=== PATIENT | female | born 1960 | race Hispanic/Latino ===

== ENCOUNTER → 2017-03-23 | Outpatient (CLI) | payer OTHER ==
[~2017-03-23] MED LIST: ADVIL,NUPRIN,M200 MG PO; ALEVE220 MG PO; ASPIR-LOW81 MG PO; ERGOCALCIF50000 UNIT PO; MAGNESIUM200 MG PO; SIMVASTATIN20 MG PO; TYLENOL EXTRA500 MG PO; ZITHROMAX Z-PA250 MG PO; ZOFRAN4 MG PO
== END | disposition home or self-care (01) ==
LOC: CDC 10:58
DX: Z01.810 Encounter for preprocedural cardiovascular examination (principal); R94.31 Abnormal electrocardiogram [ECG] [EKG]
CPT/HCPCS: 93000

== ENCOUNTER 2017-03-27 07:35 | Day surgery (SDC) | payer OTHER ==
[~2017-03-27] VITALS: Ht 162.6 cm; Wt 102.1 kg
[2017-03-27 07:51] VITALS: BP 175/82
[2017-03-27 10:15] VITALS: BP 122/69
[2017-03-27 11:05] VITALS: BP 136/74
== END 2017-03-27 11:15 | disposition home or self-care (01) ==
LOC: SDC
PROC: 0UDB8ZX Extraction of Endometrium, Via Natural or Artificial Opening Endoscopic, Diagnostic (ICD-10-PCS; principal; 2017-03-27)
DX: N95.0 Postmenopausal bleeding (principal); R93.8 Abnormal findings on diagnostic imaging of other specified body structures; E78.00 Pure hypercholesterolemia, unspecified; E55.9 Vitamin D deficiency, unspecified; F17.210 Nicotine dependence, cigarettes, uncomplicated; Z88.0 Allergy status to penicillin
CPT/HCPCS: 88305; J0330; J1100; J2250; J2405; J2765; J3010; Q0175

== ENCOUNTER 2018-01-18 21:25 | Observation (INO) | payer OTHER ==
[~2018-01-18] VITALS: Ht 154.9 cm; Wt 106.4 kg
[2018-01-18 21:49] LABS: HEMATOCRIT 40.5 % (36.0-46.0); MCH 30.8 PG (29.0-34.0); MCHC 34.6 G/DL (30.0-36.0); PLATELET COUNT 161 K/uL (156-360); RBC DIS.WIDTH-CV 12.5 % (11.8-14.6); RBC DIS.WIDTH-SD 41.1 % (39-53); RED BLOOD COUNT 4.55 M/uL (3.80-5.20); WHITE BLOOD COUNT 8.6 K/uL (4.1-10.2)
[2018-01-18 22:12] LABS: CHLORIDE 108 mEq/L (99-109); POTASSIUM 4.2 mEq/L (3.7-5.4); SODIUM 143 mEq/L (136-147)
[2018-01-18 22:13] LABS: GLUCOSE 111 mg/dL (70-99)
[2018-01-18 22:17] LABS: CREATININE 0.8 mg/dL (0.6-1.3); GFR ESTIMATE (CALCULATED) > 59 mL/min/
[2018-01-18 22:18] LABS: UREA NITROGEN (BUN) 15 mg/dL (9-23)
[2018-01-18 22:22] LABS: TROP-I INTERPRETATION NEGATIVE; TROPONIN-I < 0.01 ng/mL (0.0-0.30)
[2018-01-19 04:49] VITALS: BP 142/78
[2018-01-19 04:53] LABS: TROP-I INTERPRETATION NEGATIVE; TROPONIN-I < 0.01 ng/mL (0.0-0.30)
[2018-01-19 07:40] VITALS: BP 120/79
[2018-01-19 11:01] LABS: TROP-I INTERPRETATION NEGATIVE; TROPONIN-I < 0.01 ng/mL (0.0-0.30)
[2018-01-19] MEDS ORDERED: SIMVASTATIN20 MG PO (11:38)
[2018-01-19] MEDS ORDERED: GABAPENTIN100 MG PO (11:38)
[2018-01-19] MEDS ORDERED: LO-DOSE ASPIRIN81 M1 PO (11:38)
[2018-01-19] MEDS ORDERED: ANTIVERT25 MG PO (11:38)
[2018-01-19 12:09] VITALS: BP 137/70
[2018-01-19 15:45] VITALS: BP 132/78
== END 2018-01-19 17:24 | disposition home or self-care (01) ==
LOC: EME 21:25 → EDOF 01-19 03:09 → ENRESERV 01-19 03:13 → 4SOUTH 01-19 04:34 → ENPENDDIS 01-19 11:47 → 4SOUTH 01-19 17:24
PROVIDERS: Physician Assistant
DX: R07.9 Chest pain, unspecified (principal); R20.2 Paresthesia of skin; R61 Generalized hyperhidrosis; M79.602 Pain in left arm; G47.33 Obstructive sleep apnea (adult) (pediatric); E78.5 Hyperlipidemia, unspecified; R73.03 Prediabetes; R42 Dizziness and giddiness; R51 Headache; Z90.49 Acquired absence of other specified parts of digestive tract; Z82.49 Family history of ischemic heart disease and other diseases of the circulatory system; Z82.3 Family history of stroke; Z87.891 Personal history of nicotine dependence; Z88.0 Allergy status to penicillin; Z79.82 Long term (current) use of aspirin
CPT/HCPCS: 70450; 71046; 71275; 80048; 84484; 85027; 93005; 99281; 99285; G0378